=== PATIENT | male | born 1960 | race Caucasian/White ===

== ENCOUNTER 2022-10-06 16:40 | Emergency (ER) | payer OTHER, SELFPAY ==
--- NOTE | ~2022-10-06 | XR_ITS ---
EXAMINATION: XR chest 2V Exam Date/Time: 10/06/2022 17:12 [employer] HISTORY: Wheezing Dyspnea, COUGH Comparison: 11/17/2014. RESULT: Lines, tubes, and devices: None. Lungs and pleura: Emphysematous changes. 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 Cardiomediastinal silhouette: Stable. Other: No acute osseous or upper abdominal finding. IMPRESSION: No acute cardiopulmonary process. Reviewed, dictated and finalized at location K. [employer]
[2022-10-06 16:46] VITALS: BP 135/107; PULSE 114; RESP 22; TEMP 36.9; O2SAT 94
--- NOTE | 2022-10-06 16:50 | ED.URI ---
HPI - URI/Sore Throat General Chief Complaint: Upper Respiratory Infection Stated Complaint: can't breath Time Seen by Provider: 10/06/22 16:50 Source: patient and RN notes reviewed Mode of arrival: ambulatory Limitations: no limitations History of Present Illness MD elicited complaint: cough Onset (ago): day(s) (1) Consistency: constant and progressively worsening Severity: moderate Description of mucous: clear Exacerbating factors: exertion Relieving factors: nothing Associated symptoms: myalgias and cough Treatments prior to arrival: none Related Data Allergies Allergy/AdvReac Type Severity Reaction Status Date / Time No Known Allergies Allergy Verified 10/06/22 16:49 Review of Systems Review of Systems: All systems reviewed & are unremarkable except as noted in HPI and below Constitutional: Constitutional: Denies chills and Denies fever(s) PMFSH Past Medical History Medical History (Updated 10/06/22 @ 18:41 by Wayne Stevens MD) Hemorrhoids Surgical History Surgical History (Updated 10/06/22 @ 16:57 by Wayne Stevens MD) Hx of inguinal hernia repair Social History Social History (Updated 10/06/22 @ 16:57 by Wayne Stevens MD) Smoking packs per day: 0.5 Smoking cigarettes per day: 10.0 Smoking status: Current every day smoker Tobacco type: cigarettes Exam Const: General: no acute distress, alert and ill appearing acutely Nutritional Appearance: well nourished Orientation/consciousness: patient oriented x3 Limitations: no limitations HENMT: Head: normal to inspection Ears: external ears normal Face and sinus: normal facial exam Eyes: Conjunctivae: conjunctivae normal Pupils: Equal, round and reactive pupils present EOM: EOMs intact bilaterally Neck: Neck: normal visual inspection Resp: Effort & Inspection: labored and tachypneic Auscultation: wheezes expiratory wheezes, inspiratory wheezes, anterior, posterior and throughout Cardio: Rate: tachycardic Rhythm: regular rhythm GI: GI Palp: Yes Soft to palpation and No Tenderness to palpation present (GI) Auscultation: normal bowel sounds Back/Spine/Pelvis: Cervical Spine: cervical ROM normal Thoracic/Lumbar Spine: thoraco-lumbar ROM normal Skin: General skin exam: normal color Neuro: General: patient oriented x3, moves all extremities, no focal motor deficits and CN's II-XI intact bilaterally Speech: normal speech Gait exam (Neuro): Normal gait present Extrem: General: normal to inspection and no clubbing, cyanosis or edema Psych: Mental Status: mental status grossly normal Affect: normal affect Attitude: cooperative Course Course Emergency Course: patient mildly improved after 4 puffs of albuterol. Once his COVID came back negative he is given a DuoNeb and he significantly improved following this. He is going to be discharged on steroids his albuterol inhaler and Tamiflu. Vital Signs Vital signs: Vital Signs Temperature 36.9 C 10/06/22 16:46 Pulse Rate 114 H 10/06/22 16:46 Respiratory Rate 22 H 10/06/22 16:46 Blood Pressure 135/107 H 10/06/22 16:46 Pulse Oximetry 94 10/06/22 16:46 Oxygen Delivery Room Air 10/06/22 16:46 Temperature 36.8 C 10/06/22 18:56 Pulse Rate 114 H 10/06/22 18:56 Respiratory Rate 18 10/06/22 18:56 Blood Pressure 140/87 10/06/22 18:56 Pulse Oximetry 98 10/06/22 18:56 Oxygen Delivery Room Air 10/06/22 18:56 MDM - URI/Sore Throat Differential Diagnosis Differential diagnosis: Likely upper respiratory infection, viral infection, bronchitis and influenza Lab Data Attestation: I reviewed the patient's lab results. Result diagrams: 10/06/22 17:38 10/06/22 17:38 Labs: Lab Results 10/06/22 10/06/22 10/06/22 Range/Units 16:50 17:38 17:38 WBC 9.4 (4.8-10.8) K/mm3 RBC 5.46 (4.70-6.10) M/mm3 Hgb 17.1 (14.0-18.0) g/dL Hct 49.8 (40.0-54.0) % MCV 91.2 (78.0-102.0) fL MCH 31.3 H (27.0-31
[2022-10-06] MEDS: ALBUTEROL SULFATE (*SP) INHALER 4 PUFF INHALATION (17:11)
[2022-10-06 17:41] LABS: Basophils Absolute Auto 0.04 K/mm3 (0.00-0.10); Basophils Percent Auto 0.4 % (0.0-1.0); Eosinophils Absolute Auto 0.01 K/mm3 (0.02-0.50); Eosinophils Percent Auto 0.1 % (1.0-6.0); Hematocrit 49.8 % (40.0-54.0); Hemoglobin 17.1 g/dL (14.0-18.0); Immature Granulocyte Absolute 0.03 K/mm3 (0.00-0.00); Immature Granulocyte Percent A 0.3 % (0.0-0.0); Lymphocytes Absolute Auto 0.73 K/mm3 (1.10-4.50); Lymphocytes Percent Auto 7.8 % (18.0-42.0); Mean Corpuscular HGB Conc 34.3 g/dL (32.0-36.0); Mean Corpuscular Hemoglobin 31.3 pg (27.0-31.0); Mean Corpuscular Volume 91.2 fL (78.0-102.0); Mean Platelet Volume 9.4 fl (8.7-11.0); Monocytes Absolute Auto 0.79 K/mm3 (0.10-0.90); Monocytes Percent Auto 8.4 % (2.0-11.0); Neutrophils Absolute Auto 7.8 K/mm3 (1.7-7.2); Platelet Count Result 283 K/mm3 (150-420); Red Blood Count 5.46 M/mm3 (4.70-6.10); Red Cell Distribution Width 14.4 % (11.6-14.4); White Blood Count 9.4 K/mm3 (4.8-10.8)
[2022-10-06 17:44] LABS: Influenza A QL RT-PCR Positive (Negative); Influenza B QL RT-PCR Negative (Negative); SARS-CoV-2 RNA PCR Negative (Negative)
[2022-10-06 17:57] VITALS: BP 126/93; PULSE 107; RESP 18; O2SAT 94
[2022-10-06 18:04] LABS: Alanine Aminotransferase 23 U/L (16-63); Albumin Level 3.8 g/dL (3.4-5.0); Alkaline Phosphatase 149 U/L (46-116); Anion Gap 15 mmol/L (8-16); Aspartate Amino Transferase 22 U/L (15-37); Bilirubin,Total 0.4 mg/dL (0.00-1.00); Blood Urea Nitrogen 13 mg/dL (7-18); Calcium 9.2 mg/dL (8.5-10.1); Carbon Dioxide 23 mmol/L (21-32); Chloride 102 mmol/L (98-108); Estimated Glomerular Filt Rate > 60; Glucose 106 mg/dL (70-99); Magnesium 1.9 mg/dL (1.8-2.4); NT Pro B Type Natriuretic Pept 660 pg/mL (0-125); Osmolality Calculated 290 mOsm/kg (285-295); Sodium 140 mmol/L (136-145); Total Protein 7.5 g/dL (6.4-8.2)
[2022-10-06] MEDS: OSELTAMIVIR PHOSPHATE 75 MG CAPSULE PO (18:08)
[2022-10-06 18:25] VITALS: PULSE 111; RESP 20; O2SAT 94
[2022-10-06] MEDS: IPRATROPIUM 0.5 MG/ALBUTEROL SULFATE 2.5 MG AMPUL.NEB 3 ML INHALATION (18:25)
[2022-10-06 18:30] VITALS: O2SAT 95
[2022-10-06 18:36] VITALS: PULSE 102; RESP 20; O2SAT 98
[2022-10-06] MEDS: methylPREDNISolone SOD SUCC 125 MG VIAL IM (18:46)
[2022-10-06 18:56] VITALS: BP 140/87; PULSE 114; RESP 18; TEMP 36.8; O2SAT 98
== END 2022-10-06 18:58 | disposition home or self-care (01) ==
PROVIDERS: Emergency Provider Emergency Medicine
DX: J11.1 Influenza due to unidentified influenza virus with other respiratory manifestations (principal); J44.9 Chronic obstructive pulmonary disease, unspecified; Z20.822 Contact with and (suspected) exposure to COVID-19; F17.200 Nicotine dependence, unspecified, uncomplicated
CPT/HCPCS: 36415; 71046; 80053; 83735; 83880; 85025; 86140; 87502; 94640; 96372; 99283; A9270; J2930; U0003; U0005

== ENCOUNTER 2024-07-24 19:14 | Emergency (ER) | payer MEDICARE, MEDICAID, SELFPAY ==
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
[2024-07-24 19:15] VITALS: BP 145/99; PULSE 79; RESP 18; TEMP 36.8; O2SAT 97
[2024-07-24] MEDS: LIDOCAINE HCL 1% LOCAL INJ 10 ML VIAL INFILTRATE (20:00)
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
[2024-07-24] MEDS: TETANUS,DIPHTHERIA,AC PERTUSSIS ADULT 0.5 ML (ADACEL) IM (20:33)
[2024-07-24] MEDS: KETOROLAC (*BKC) 60 MG/2 ML VIAL IM (20:34)
[2024-07-24 20:36] VITALS: BP 134/97; PULSE 77; RESP 18; TEMP 36.8; O2SAT 98
[2024-07-24] MEDS: NEOMYCIN/POLYMYXIN/BACITRACIN OINTMENT PACKET 1 PACKET TOPICAL (20:44)
== END 2024-07-24 20:50 | disposition home or self-care (01) ==
PROVIDERS: Emergency Provider Emergency Medicine
DX: S01.01XA Laceration without foreign body of scalp, initial encounter (principal); S51.812A Laceration without foreign body of left forearm, initial encounter; S61.411A Laceration without foreign body of right hand, initial encounter; F17.210 Nicotine dependence, cigarettes, uncomplicated; Z23 Encounter for immunization; W05.2XXA Fall from non-moving motorized mobility scooter, initial encounter
CPT/HCPCS: 12004; 73502; 90471; 90715; 96372; 99283; J1885